=== PATIENT | female | born 1965 | race Caucasian/White ===

== ENCOUNTER 2022-09-03 07:08 | Outpatient (CLI) | payer OTHER | END 2022-09-03 07:20 | disposition home or self-care (01) | LOC: RAD 07:08 | PROVIDERS: ATTEND Family Medicine | DX: M25.561 Pain in right knee (principal) ==

== ENCOUNTER 2022-11-04 07:06 | Outpatient (CLI) | payer OTHER | END 2022-11-04 07:23 | disposition home or self-care (01) | LOC: MRI 07:06 | PROVIDERS: ATTEND Orthopaedic Surgery | DX: M70.61 Trochanteric bursitis, right hip (principal) | CPT/HCPCS: 73721 ==